=== PATIENT | female | born 1940 | race Asian ===

== ENCOUNTER 2022-02-11 14:26 | Outpatient (CLI) | payer MEDICARE, OTHER, SELFPAY | END 2022-02-11 14:27 | disposition home or self-care (01) | LOC: NFLDREF 14:27 | PROVIDERS: PCP Family Medicine; Visit Provider Family Medicine | DX: R35.0 Frequency of micturition (principal) | CPT/HCPCS: 87086; 87186 ==

== ENCOUNTER 2022-09-10 10:05 | Outpatient (CLI) | payer MEDICARE, OTHER, SELFPAY | END 2022-09-10 10:06 | disposition home or self-care (01) | PROVIDERS: PCP Family Medicine; Visit Provider Family Medicine | DX: Z00.00 Encounter for general adult medical examination without abnormal findings (principal); E78.5 Hyperlipidemia, unspecified; E03.9 Hypothyroidism, unspecified; I10 Essential (primary) hypertension; E87.1 Hypo-osmolality and hyponatremia | CPT/HCPCS: 80048; 80061; 84443 ==

== ENCOUNTER 2022-09-18 08:50 | Outpatient (CLI) | payer MEDICARE, OTHER, SELFPAY ==
--- NOTE | 2022-09-18 09:15 | CRLHL7_ITS ---
For Patients: As a result of the Century Cures Act, medical imaging exams and procedure reports are released immediately into your electronic medical record. You may view this report before your referring provider. If you have questions, please contact your health care provider. DIGITAL BILATERAL SCREENING MAMMOGRAM USING COMPUTER-AIDED DETECTION INDICATION: 82-year-old asymptomatic female. Benign biopsies RIGHT breast. Follow-up. Screening. TECHNIQUE: CC and MLO views were obtained. This digital study was evaluated with the assistance of computer-aided detection. COMPARISON: 09/14/2021, 09/06/2021, and 07/07/2018. FINDINGS: Breast Composition: There are areas of scattered fibroglandular density. Minimal benign calcification on the RIGHT. Two biopsy clips are identified on the RIGHT, one is associated with a small nodule which appears to be slightly larger than before. By pathology report the biopsies were benign. No suspicious microcalcifications or regions of architectural distortion. IMPRESSION: 1. Biopsy change RIGHT breast. 2. One of the biopsied nodules appears to be slightly larger. 3. Annual mammography is recommended. BI-RADS Category 2: Benign A lay language report of this examination will be provided to the patient. Dictated by: Bishop Diaz MD @09/19/2022 8:20:55 AM jj/Dictated by: Bishop Diaz MD @ 09/19/2022 8:20:00 AM (Electronically Signed)
== END 2022-09-18 08:51 | disposition home or self-care (01) ==
LOC: MAMMO 08:51
PROVIDERS: PCP Family Medicine; Visit Provider Family Medicine
DX: Z12.31 Encounter for screening mammogram for malignant neoplasm of breast (principal); N63.10 Unspecified lump in the right breast, unspecified quadrant
CPT/HCPCS: 77067

== ENCOUNTER 2023-04-18 09:13 | Inpatient (IN) | payer MEDICARE, OTHER, SELFPAY ==
[2023-04-18] VITALS (15 sets, daily range): BP systolic 81–139; BP diastolic 53–83; PULSE 67–109; RESP 14–16; TEMP 36.4–39.4; O2SAT 97–98; BMI 21.2; BMI 21.4
[2023-04-18 09:40] LABS: Appearance Urine Turbid (Clear); Bilirubin Urine Negative (Negative); Blood Urine 3+ (Negative); Color Urine Yellow (Yellow); Glucose Urine Negative (Negative); Ketones Urine Negative (Negative); Leukocyte Esterase Urine 3+ (Negative); Nitrite Urine Negative (Negative); Protein Urine 3+ (Negative); Specific Gravity Urine 1.015 (1.000-1.030); Urobilinogen Urine 0.2 (0.2-1.0)
[2023-04-18 09:52] LABS: Bacteria Urine Many; RBC Urine 25-50 (0-2); Squamous Epithelial Cell Urine Few (None-Few); WBC Urine >100 (0-5)
[2023-04-18 12:00] LABS: Basophils Percent Auto 0.4 % (0.0-3.0); Hemoglobin* 11.9 gm/dL (12.0-16.0); Immature Granulocytes Pct Auto 0.2 %; Mean Corpuscular HGB Conc 35 gm/dL (32-36); Mean Corpuscular Hemoglobin 30 pg (26-34); Mean Corpuscular Volume 84 fL (80-100); Monocytes Percent Auto 6.4 % (0.0-11.0); Platelet Count* 167 K/uL (140-440); Red Blood Count 4.04 m/uL (4.00-5.20); White Blood Count* 11.27 K/uL (4.50-11.00)
[2023-04-18 12:06] LABS: Slide Review Reflex No
[2023-04-18 12:08] LABS: Chloride* 92 mmol/L (96-114); Potassium* 4.2 mmol/L (3.6-5.1); Sodium* 127 mmol/L (135-149)
[2023-04-18 12:11] LABS: Anion Gap 17 mEq/L (7-15); Blood Urea Nitrogen* 12 mg/dL (7-30); Carbon Dioxide* 18 mmol/L (20-32); Creatinine* 1.6 mg/dL (0.5-1.5); Est. Creatinine Clearance* 21.81; Estimated Glomerular Filt Rate 32 ml/min; Glucose* 118 mg/dL (60-115)
[2023-04-18 12:12] LABS: Calcium* 9.6 mg/dL (8.4-10.6)
--- NOTE | 2023-04-18 13:08 | ED_ITS ---
HPI - General Adult General Date Seen: 04/18/23 Chief complaint: Urogenital Problems, Female Stated complaint: Possible bladder infection Time Seen by Provider: 04/18/23 11:01 Source: patient Mode of arrival: ambulatory Limitations: no limitations History of Present Illness HPI narrative: Patient is an 82-year-old female with history of chronic hepatitis-B infection presented to emergency department for dysuria. She states she has been having dysuria for the past 4 days. She has associated nausea and has vomited once in that time. She states she has not been eating much due to the nausea and just not feeling hungry. She has been drinking fluids though. Denies weakness, numbness, headache, vision changes, abdominal pain, lightheadedness, dizziness. No other concerns at this time. Related Data Home Medications Medication Instructions Recorded Confirmed aspirin 81 mg tablet,delayed 81 mg PO MOWEFR 03/07/22 04/18/23 release calcium carbonate 600 mg calcium 600 mg PO DAILY 03/07/22 04/18/23 (1,500 mg) tablet cholecalciferol (vitamin D3) 25 25 mcg PO DAILY 03/07/22 04/18/23 mcg (1,000 unit) capsule mecobalamin (vitamin B12) 1,000 1,000 mcg PO DAILY 03/07/22 04/18/23 mcg chewable tablet multivitamin 1 tab PO QAM 03/07/22 04/18/23 omega 8-ukv-nza-fish oil 300 1 cap PO DAILY 03/07/22 04/18/23 mg-1,000 mg capsule (Fish Oil) triamcinolone acetonide 0.1 % 1 applic topical BID PRN 03/07/22 04/18/23 topical cream atorvastatin 10 mg tablet 10 mg PO HS 04/18/23 04/18/23 dorzolamide 2 % eye drops 1 drp ophthalmic (eye) BID 04/18/23 04/18/23 ketoconazole 2 % shampoo 1 applic topical Q3D PRN 04/18/23 04/18/23 lisinopril 30 mg tablet 30 mg PO DAILY 04/18/23 04/18/23 omeprazole 20 mg capsule,delayed 20 mg PO DAILY 04/18/23 04/18/23 release sennosides 8.6 mg capsule (senna) 17.2 mg PO DAILY 04/18/23 04/18/23 timolol maleate 0.5 % eye drops 1 drp ophthalmic (eye) BID 04/18/23 04/18/23 Previous Rx's Medication Instructions Recorded levothyroxine 25 mcg tablet 25 mcg PO DAILY #90 tabs 03/10/23 ropinirole 0.5 mg tablet See Rx Instructions .Route 03/10/23 .COMPLEX #90 tabs spironolactone 25 mg tablet 25 mg PO QAM #90 tabs 03/10/23 Allergies Allergy/AdvReac Type Severity Reaction Status Date / Time ciprofloxacin Allergy Mild Rash Verified 03/10/23 12:55 Review of Systems Status of ROS: Reports: 10 or more systems reviewed and unremarkable except as noted in History and below [facility] Medical History (Updated 04/18/23 @ 14:49 by Macy Dumont PA-C) Hyponatremia ?E87.1 - Hypo-osmolality and hyponatremia (ICD-10) Surgical History S/P bilateral cataract extraction ?Z98.41 - Cataract extraction status, right eye (ICD-10) ?Z98.42 - Cataract extraction status, left eye (ICD-10) History of bilateral breast reduction surgery ?Z98.890 - Other specified postprocedural states (ICD-10) Family History Unknown Breast cancer Colon cancer Social History What is your current living situation?: I presently have a place to live Problems where you live: no known problems Problems where you live details: none identified In the past 12 months, utilities in danger of being shut off: no In past 12 months, lack of transportation kept you from medical appts, meetings, work, or getting things needed for daily living: no In the past 12 mos, have been you worried that your food would run out before you had money to buy more?: never true In the past 12 mos, the food you bought just didn't last and you didn't have money to buy more?: never true Smoking Status: Never smoker How often do you have a drink containing alcohol: never AUDIT-C Alcohol total score: 0 Non-prescribed substance use: denies use Caffeine: No How often does anyone, including family, friends and others, physically hurt you : never How often does anyone, including family, friends and others, insult or talk down to you: never How often does anyone, including family, friends and others, threaten you with harm: never How often does anyone, including family, friends and others, scream or curse at you: never Little interest or pleasure in doing things: nearly every day Feeling down, depressed, or hopeless: not at all service: No Exam Narrative: Exam Narrative: Const: Well-nourished, Well-developed, in no distress Eyes: PERRL, no conjunctival injection, and symmetrical lids HENT: Atraumatic external nose and ears. Moist mucous membranes. Neck: Symmetric, trachea midline, No thyromegaly. CVS: RRR, No murmurs or gallops. Peripheral pulses 2+ and equal in all extremities RESP: Unlabored respiratory effort. Clear to auscultation bilaterally. GI: Nontender/Nondistended, No rebound or guarding. MSK:Extremities w/o deformity, Normal Active ROM Skin: Warm, Dry. No rashes or lesions. Neuro: Normal Muscle tone, No focal neurological deficits. Psych: Awake, Alert, & Oriented x3. Appropriate mood and affect. Const: Vital Signs, click to edit/add: Vital Signs - 24 hr 04/18/23 09:22 04/18/23 13:00 04/18/23 13:30 Temperature 97.6 F Pulse Rate 82 89 Pulse Rate [Pulse Oximeter] 96 Respiratory Rate 16 14 16 Blood Pressure 125/80 114/75 Blood Pressure [Ri ght Upper Arm] 98/66 Pulse Oximetry 98 97 98 Oxygen Delivery Me thod Room Air Course Vital Signs Vital signs: Initial Vital Signs Temperature 97.6 F 04/18/23 09:22 Temperature Source Temporal Artery Scan 04/18/23 09:22 Pulse Rate 96 04/18/23 09:22 Respiratory Rate 16 04/18/23 09:22 Blood Pressure 98/66 04/18/23 09:22 Blood Pressure Mean 76 04/18/23 09:22 Blood Pressure Position Supine 04/18/23 09:22 Pulse Oximetry 98 04/18/23 09:22 Oxygen Delivery Method Room Air 04/18/23 09:22 Vital Signs Temperature 97.6 F 04/18/23 09:22 Pulse Rate 96 04/18/23 09:22 Respiratory Rate 16 04/18/23 09:22 Blood Pressure 98/66 04/18/23 09:22 Pulse Oximetry 98 04/18/23 09:22 Oxygen Delivery Method Room Air 04/18/23 09:22 Temperature 100.9 F H 04/18/23 14:49 Pulse Rate 102 H 04/18/23 14:49 Respiratory Rate 16 04/18/23 14:49 Blood Pressure 139/83 04/18/23 14:49 Pulse Oximetry 98 04/18/23 14:49 Oxygen Delivery Method Room Air 04/18/23 14:49 Medications Administered Medications: Discontinued Medications Generic Name Dose Route Start Last Admin Trade Name Johnnie PRN Reason Stop Dose Admin Lactated Ringer's 1,000 mls @ 1,000 mls/hr 04/18/23 11:06 04/18/23 11:44 Lactated Ringers 1000 Ml IV 04/18/23 12:05 Not Given .Q1H ONE Sodium Chloride 1,000 mls @ 1,000 mls/hr 04/18/23 12:45 04/18/23 13:11 0.9 % Sodium Chloride 1000 Ml IV 04/18/23 13:44 1,000 mls/hr .Q1H CESILIA Administration Ceftriaxone Sodium 1 gm/ 100 mls @ 200 mls/hr 04/18/23 13:03 04/18/23 14:11 Sodium Chloride IVPB 04/18/23 13:04 Infused ONCE ONE Infusion Ondansetron HCl 4 mg 04/18/23 11:06 04/18/23 13:27 Ondansetron 2 Mg/Ml Inj IVP 04/18/23 11:07 Not Given ONCE ONE Medical Decision Making [facility] Narrative Medical decision making narrative: Patient is an 82-year-old female presenting for dysuria. No other complaints. Due to her age in decreased oral intake with nausea over the past few days I find it necessary to order CBC and BMP to better evaluate her. We also give her L of fluids. Urinalysis was already done and shows clearly shows urinary tract infection. Lab work return with new a normal white blood cell count. Her sodium is 127 and of note she was 129 back in August with no other issues. The concerning findings the creatinine is up to 1.6. He had back in August was 0.9 and looking at her history she has been between 0.7 and 0.9 since 2010. His likely caused by her dehydration. Spoke to the patient about admission versus discharge. I did explain to her I find she would probably be better off [facility] to receive fluids. I spoke to the admitting provider in the accepted her for admission Lab Data Labs: Lab Results 04/18/23 04/18/23 Range/Units 09:30 11:50 WBC 11.27 H (4.50-11.00) K/uL RBC 4.04 (4.00-5.20) m/uL Hgb 11.9 L (12.0-16.0) gm/dL Hct 34.0 (33.0-51.0) % MCV 84 (80-100) fL MCH 30 (26-34) pg MCHC 35 (32-36) gm/dL RDW Coeff of Carlos 13.0 (11.5-15.5) % Plt Count 167 (140-440) K/uL Neut % (Auto) 82.0 H (42.0-72.0) % Lymph % (Auto) 11.0 L (20-44) % [place] % (Auto) 6.4 (0.0-11.0) % Eos % (Auto) 0.0 (0.0-7.0) % Baso % (Auto) 0.4 (0.0-3.0) % Neut # (Auto) 9.20 H (1.7-7.0) K/uL Lymph # (Auto) 1.20 (0.90-2.90) K/uL [place] # (Auto) 0.70 (0.00-0.90) K/UL Eos # (Auto) 0.00 (0.00-0.50) K/uL Baso # (Auto) 0.00 (0.00-0.30) K/uL Abs Immat Gran (auto) 0.00 (0.00-0.30) K/uL Imm/Tot Granulo (auto) 0.2 % Sodium 127 L (135-149) mmol/L Potassium 4.2 (3.6-5.1) mmol/L Chloride 92 L (96-114) mmol/L Carbon Dioxide 18 L (20-32) mmol/L Anion Gap 17 H (7-15) mEq/L BUN 12 (7-30) mg/dL Creatinine 1.6 H (0.5-1.5) mg/dL Estimated Creat Clear 21.81 Estimated GFR 32 ml/min Glucose 118 H (60-115) mg/dL Calcium 9.6 (8.4-10.6) mg/dL Urine Color Yellow (Yellow) Urine Appearance Turbid A (Clear) Urine pH 6.0 (5.0-8.5) Ur Specific [place] 1.015 (1.000-1.030) Urine Protein 3+ A (Negative) Urine Glucose (UA) Negative (Negative) Urine Ketones Negative (Negative) Urine Blood 3+ A (Negative) Urine Nitrite Negative (Negative) Urine Bilirubin Negative (Negative) Urine Urobilinogen 0.2 (0.2-1.0) Ur Leukocyte Esterase 3+ A (Negative) Urine RBC 25-50 A (0-2) Urine WBC >100 A (0-5) Ur Squamous Epith Cells Few (None-Few) Urine Bacteria Many A (None) Discharge Plan Discharge Clinical Impression: [place] (acute kidney injury), Acute UTI Patient Disposition: Admitted As Observation Discharge Location: [facility]
[2023-04-18] MEDS: 0.9 % SODIUM CHLORIDE 1000 ml 1,000 ML IV ×2 (13:11→16:24)
[2023-04-18] MEDS: cefTRIAXone 1 GM in 0.9 % SODIUM CHLORIDE Mini-bag 100 ML IVPB (13:25)
--- NOTE | 2023-04-18 13:46 | ED.NURSE ---
Report given to JOHANNA Valdez. Pt will go to 249.
--- NOTE | 2023-04-18 14:41 | PM.IMHP1 ---
Hospitalist- H&P: HPI History of Present Illness Date Seen: 04/18/23 Chief complaint: Possible bladder infection Narrative: Arnulfo Ruvalcaba is a 82 year old female past medical history significant for hypertension, hyperlipidemia, restless legs syndrome, hypothyroidism is admitted to the medical floor from the ED for further management suspected acute urinary tract infection with [place]. Patient reports pain with urination the past few days. Denies frequency urgency. Denies flank or abdominal pain. No noted fevers or chills prior to arrival to the floor. Denies headache or dizziness currently. Denies recent nausea vomiting. Did have a loose stool upon arrival to the floor, but denies any prior. Per ED report, daughter told staff that patient has had a previous urinary tract infection requiring hospitalization. In the ED, mild leukocytosis noted. Creatinine noted to be 1.6, previously 0.9. Patient received 1 g ceftriaxone IV and 1 L normal saline bolus. Admitted for observation and further management. Labs reviewed. No imaging obtained. Review of Systems Narrative: REVIEW OF SYSTEMS: Complete review of systems performed and negative unless otherwise stated in HPI or below. [facility] Medical History (Updated 04/18/23 @ 15:16 by Macy Dumont PA-C) Hyponatremia ?E87.1 - Hypo-osmolality and hyponatremia (ICD-10) Surgical History S/P bilateral cataract extraction ?Z98.41 - Cataract extraction status, right eye (ICD-10) ?Z98.42 - Cataract extraction status, left eye (ICD-10) History of bilateral breast reduction surgery ?Z98.890 - Other specified postprocedural states (ICD-10) Family History Unknown Breast cancer Colon cancer Social History What is your current living situation?: declined to answer Problems where you live: declined to answer In the past 12 months, utilities in danger of being shut off: declined to answer In past 12 months, lack of transportation kept you from medical appts, meetings, work, or getting things needed for daily living: declined to answer In the past 12 mos, have been you worried that your food would run out before you had money to buy more?: declined to answer In the past 12 mos, the food you bought just didn't last and you didn't have money to buy more?: declined to answer Smoking Status: Never smoker Non-prescribed substance use: denies use How often does anyone, including family, friends and others, physically hurt you: decline to answer How often does anyone, including family, friends and others, insult or talk down to you: decline to answer How often does anyone, including family, friends and others, threaten you with harm: decline to answer How often does anyone, including family, friends and others, scream or curse at you: decline to answer Little interest or pleasure in doing things: nearly every day Feeling down, depressed, or hopeless: not at all Meds Home Medications and Allergies Home Medications Medication Instructions Recorded Confirmed Type aspirin 81 mg tablet,delayed 81 mg PO MOWEFR 03/07/22 04/18/23 History release calcium carbonate 600 mg calcium 600 mg PO DAILY 03/07/22 04/18/23 History (1,500 mg) tablet cholecalciferol (vitamin D3) 25 25 mcg PO DAILY 03/07/22 04/18/23 History mcg (1,000 unit) capsule mecobalamin (vitamin B12) 1,000 1,000 mcg PO DAILY 03/07/22 04/18/23 History mcg chewable tablet multivitamin 1 tab PO QAM 03/07/22 04/18/23 History omega 3-dsr-qvx-fish oil 300 1 cap PO DAILY 03/07/22 04/18/23 History mg-1,000 mg capsule (Fish Oil) triamcinolone acetonide 0.1 % 1 applic topical BID PRN 03/07/22 04/18/23 History topical cream atorvastatin 10 mg tablet 10 mg PO HS 04/18/23 04/18/23 History dorzolamide 2 % eye drops 1 drp ophthalmic (eye) BID 04/18/23 04/18/23 History ketoconazole 2 % shampoo 1 applic topical Q3D PRN 04/18/23 04/18/23 History lisinopril 30 mg tablet 30 mg PO DAILY 04/18/23 04/18/23 History omeprazole 20 mg capsule,delayed 20 mg PO DAILY 04/18/23 04/18/23 History release sennosides 8.6 mg capsule (senna) 17.2 mg PO DAILY 04/18/23 04/18/23 History timolol maleate 0.5 % eye drops 1 drp ophthalmic (eye) BID 04/18/23 04/18/23 History Allergies Allergy/AdvReac Type Severity Reaction Status Date / Time ciprofloxacin Allergy Mild Rash Verified 03/10/23 12:55 Exam Narrative: Exam Narrative: PHYSICAL EXAM General: Pleasant, conversant, NAD HEENT: Normocephalic, atraumatic, sclera white, EOMI, oral mucosa moist Cardiovascular: RRR, S1S2. No pitting edema Pulmonary: CTA bilaterally without rhonchi, rales, expiratory wheezes. No dyspnea Abdominal: Soft, nondistended, NTTP Neurological: Alert, answering questions appropriately, cranial nerves intact, no focal findings Extremities: No gross joint deformity or swelling. AROMI. Neurovascularly intact Skin: Warm, dry. Const: Vital Signs, click to edit/add: Vital Signs - 24 hr 04/18/23 09:22 04/18/23 13:00 04/18/23 13:30 Temperature 97.6 F Pulse Rate 82 89 Pulse Rate [Pulse Oximeter] 96 Respiratory Rate 16 14 16 Blood Pressure 125/80 114/75 Blood Pressure [Ri ght Upper Arm] 98/66 Pulse Oximetry 98 97 98 Oxygen Delivery Me thod Room Air Hospitalist - H&P: Result Labs Labs: Short CBC 04/18/23 Range/Units 11:50 WBC 11.27 H (4.50-11.00) K/uL Hgb 11.9 L (12.0-16.0) gm/dL Hct 34.0 (33.0-51.0) % Plt Count 167 (140-440) K/uL BMP 04/18/23 11:50 Sodium 127 L Potassium 4.2 Chloride 92 L Carbon Dioxide 18 L BUN 12 Creatinine 1.6 H Glucose 118 H Calcium 9.6 Urine 04/18/23 Range/Units 09:30 Urine Color Yellow (Yellow) Urine Appearance Turbid A (Clear) Urine pH 6.0 (5.0-8.5) Ur Specific [place] 1.015 (1.000-1.030) Urine Protein 3+ A (Negative) Urine Glucose (UA) Negative (Negative) Assessment and Plan Assessment and plan (1) Acute UTI: Problem comment: -UA suspicious, mild leukocytosis, fever 100.9 on arrival to medical floor otherwise vitally stable -continue ceftriaxone as initiated in ED. (Previous UC 01/2022 grew E coli, pansensitive) -continue gentle IV hydration following 1 L NS in ED -UC pending, BC x2, lactate, CRP ordered Status: Acute (2) [place] (acute kidney injury): Problem comment: -creatinine 1.6, previously 0.9 in 09/15 -continue gentle IV hydration -avoid nephrotoxic medications, renally dose antibiotics as appropriate, lisinopril and spironolactone held -follow morning BMP Status: Acute (3) Hyponatremia: Problem comment: -acute on chronic, sodium 127, previously 129, asymptomatic. Receiving NS for UTI. -continue to monitor with morning BMP Status: Acute (4) Benign essential hypertension: Problem comment: -lisinopril, spironolactone held in setting of [place] Status: Chronic (5) Hyperlipidemia: Problem comment: -statin held in setting of [place]. Continue aspirin Status: Chronic (6) Hypothyroidism: Problem comment: -continue levothyroxine Status: Chronic (7) Restless legs syndrome: Problem comment: -continue Requip Status: Chronic (8) Chronic hepatitis B virus infection: Problem comment: -LFTs ordered for a.m. Status: Chronic (9) Chronic gastritis: Problem comment: -continue PPI Status: Chronic Plan CODE: Full as discussed with patient VTE PPX: Enoxaparin Disposition: Observation
[2023-04-18] MEDS: ACETAMINOPHEN 325 MG TABLET PO (14:56)
[2023-04-18] MEDS: 0.9 % SODIUM CHLORIDE 1000 ml 1,000 ML 125 ML IV ×2 (15:24→22:44)
[2023-04-18 16:32] LABS: C Reactive Protein* 20.2 mg/dL (0.5-1.0)
[2023-04-18] MEDS: PIPERACILLIN/TAZOBACTAM 3.375 GM in 0.9 % SODIUM CHLORIDE Mini-bag 100 ML IVPB ×2 (16:44→22:44)
--- NOTE | 2023-04-18 17:59 | PC.NURSE ---
Patient arrived to unit at 1400. Ambulatory and A&O. SBA for transfers & ambulation. Ind bed mobility. BP stable on arrival but trended downward as well as temp trended upward. T-max 102.9. PRN Tylenol given x1 at 1455. TELE shows ST w/ PVC's. Difficult IV stick- PIV in right upper arm secured with washcloth and coban. NS infusing @ 125 mL/hr. Received x1 1L NS bolus and IV zosyn. Received IV rocephin in ED. Blood cultures obtained. Pt had x1 incontinent loose stool. Poor appetite. Skin is hot to the touch and patient pale in color in relation to ethnicity. Denies and pain, dizziness or N/V.
[2023-04-18] MEDS: 0.9 % SODIUM CHLORIDE 500 ML 500 ML IV (19:50)
[2023-04-18] MEDS: ROPINIROLE HCL 1 MG TABLET 0.5 MG PO (21:15)
[2023-04-18] MEDS: ENOXAPARIN 40 MG/0.4 ML INJ SUBCUT (21:16)
--- NOTE | 2023-04-18 22:37 | PM.IMPN1 ---
Progress Note: A&P Assessment and plan (1) Acute UTI: Problem details: -UA suspicious, mild leukocytosis, fever 100.9 on arrival to medical floor otherwise vitally stable -continue ceftriaxone as initiated in ED. (Previous UC 01/2022 grew E coli, pansensitive) -continue gentle IV hydration following 1 L NS in ED -UC pending, BC x2, lactate, CRP ordered Status: Acute (2) [place] (acute kidney injury): Problem details: -creatinine 1.6, previously 0.9 in 09/15 -continue gentle IV hydration -avoid nephrotoxic medications, renally dose antibiotics as appropriate, lisinopril and spironolactone held -follow morning BMP Status: Acute (3) Hyponatremia: Problem details: -acute on chronic, sodium 127, previously 129, asymptomatic. Receiving NS for UTI. -continue to monitor with morning BMP Status: Acute (4) Benign essential hypertension: Problem details: -lisinopril, spironolactone held in setting of [place]. Due to hyponatremia consider stopping spironolactone Status: Chronic (5) Hypothyroidism: Problem details: -continue levothyroxine Status: Chronic (6) Restless legs syndrome: Problem details: -continue Requip Status: Chronic (7) Chronic hepatitis B virus infection: Problem details: -LFTs ordered for a.m. Status: Chronic (8) Chronic gastritis: Problem details: -continue PPI Status: Chronic (9) Metabolic acidosis: Problem details: Probably due to acute illness. Continue to follow. Fluid resuscitation as needed. Status: Acute Plan Continue in hospital for treatment of sepsis and UTI with piperacillin tazobactam. Continue to monitor and manage other medical problems including problems with fluid and electrolytes. Encourage activity. Time Spent With Patient Total time spent: Total time spent today is 55 minutes, 40 minutes in coordination of care discussing with patient and other providers ongoing management of urinary tract infections and sepsis. Subjective Date Seen: 04/19/23 Interval history: 82-year-old female admitted to the hospital with onset of symptoms of urinary tract infection starting about 5 days ago. About 5 days ago she felt like she was having a urinary tract infection. This is a recurrent problem for her. She has previously been hospitalized for this as well. She tried to manage at home but was unable to and so came to the emergency room when she became quite ill with this. Yesterday she was admitted to the hospital. During the day yesterday she was hypotensive, tachycardic, febrile. She had abnormal urine sediment, elevated white count, elevated CRP. She also had acute kidney injury with a creatinine of 1.6 compared to her most recent baseline creatinine of 0.9 last August. She had a metabolic acidosis as well. She is treated with fluid resuscitation and antibiotic was switched to piperacillin tazobactam. Today she reports feeling quite a bit better. She reports no shortness of breath are chest pain. She still having low-grade fevers. She has had a poor appetite but it is a little better today. No nausea or vomiting. No flank or back pain. Urination feels better as well. Exam Narrative: Exam Narrative: She is alert and appears in no distress. Speech is normal. She is oriented to her circumstances. Respirations are clear to auscultation. Cardiovascular: S1, S2, regular rate and rhythm. No murmur gallop or rub. Abdomen: Bowel sounds active. Abdomen is soft without tenderness or mass. No flank tenderness or CVA tenderness. Extremities without edema. Const: Vital Signs, click to edit/add: Vital Signs - 24 hr 04/18/23 09:22 04/18/23 13:00 04/18/23 13:30 Temperature 97.6 F Pulse Rate 82 89 Pulse Rate [Pulse Oximeter] 96 Respiratory Rate 16 14 16 Blood Pressure 125/80 114/75 Blood Pressure [Le ft Arm] Blood Pressure [Ri ght Upper Arm] 98/66 Pulse Oximetry 98 97 98 Oxygen Delivery Me thod Room Air 04/18/23 14:02 04/18/23 14:02 04/18/23 14:33 Temperature 100.9 F H Pulse Rate Pulse Rate [Pulse Oximeter] 102 H Respiratory Rate 16 16 Blood Pressure Blood Pressure [Le ft Arm] 139/83 Blood Pressure [Ri ght Upper Arm] Pulse Oximetry 97 98 97 Oxygen Delivery Me thod Room Air Room Air Room Air 04/18/23 14:49 04/18/23 14:56 04/18/23 15:00 Temperature 100.9 F H 100.9 F H Pulse Rate Pulse Rate [Pulse Oximeter] 102 H 109 H Respiratory Rate 16 16 Blood Pressure Blood Pressure [Le ft Arm] 139/83 Blood Pressure [Ri ght Upper Arm] Pulse Oximetry 98 Oxygen Delivery Me thod Room Air 04/18/23 15:45 04/18/23 16:24 04/18/23 16:27 Temperature 102.9 F H 102.9 F H Pulse Rate 104 H Pulse Rate [Pulse Oximeter] 109 H Respiratory Rate 16 Blood Pressure Blood Pressure [Le ft Arm] 91/59 L Blood Pressure [Ri ght Upper Arm] Pulse Oximetry 98 Oxygen Delivery Me thod Room Air 04/18/23 17:55 04/18/23 19:00 04/18/23 21:00 Temperature 99.9 F H 98.3 F Pulse Rate Pulse Rate [Pulse Oximeter] 67 Respiratory Rate 16 Blood Pressure Blood Pressure [Le ft Arm] 90/53 L 81/54 L 92/53 L Blood Pressure [Ri ght Upper Arm] Pulse Oximetry 98 Oxygen Delivery Me thod Room Air Documenting provider has reviewed patient's vital signs: yes Labs Labs: Laboratory Results - last 24 hr 04/18/23 04/18/23 04/18/23 09:30 11:50 15:46 WBC 11.27 H RBC 4.04 Hgb 11.9 L Hct 34.0 MCV 84 MCH 30 MCHC 35 RDW Coeff of Carlos 13.0 Plt Count 167 Neut % (Auto) 82.0 H Lymph % (Auto) 11.0 L [place] % (Auto) 6.4 Eos % (Auto) 0.0 Baso % (Auto) 0.4 Neut # (Auto) 9.20 H Lymph # (Auto) 1.20 [place] # (Auto) 0.70 Eos # (Auto) 0.00 Baso # (Auto) 0.00 Abs Immat Gran (auto) 0.00 Imm/Tot Granulo (auto) 0.2 Sodium 127 L Potassium 4.2 Chloride 92 L Carbon Dioxide 18 L Anion Gap 17 H BUN 12 Creatinine 1.6 H Estimated Creat Clear 21.81 Estimated GFR 32 Glucose 118 H Lactate 1.0 Calcium 9.6 C-Reactive Protein 20.2 H Urine Color Yellow Urine Appearance Turbid A Urine pH 6.0 Ur Specific [place] 1.015 Urine Protein 3+ A Urine Glucose (UA) Negative Urine Ketones Negative Urine Blood 3+ A Urine Nitrite Negative Urine Bilirubin Negative Urine Urobilinogen 0.2 Ur Leukocyte Esterase 3+ A Urine RBC 25-50 A Urine WBC >100 A Ur Squamous Epith Cells Few Urine Bacteria Many A
[2023-04-19] VITALS (7 sets, daily range): BP systolic 92–144; BP diastolic 57–82; PULSE 73–99; RESP 16–20; TEMP 36.7–38.2; O2SAT 97–99
[2023-04-19] MEDS: ACETAMINOPHEN 325 MG TABLET PO ×2 (03:11→11:47)
[2023-04-19] MEDS: PIPERACILLIN/TAZOBACTAM 3.375 GM in 0.9 % SODIUM CHLORIDE Mini-bag 100 ML IVPB ×4 (04:45→22:31)
[2023-04-19] MEDS: LEVOTHYROXINE 25 MCG TABLET PO (06:19)
[2023-04-19] MEDS: OMEPRAZOLE 20 MG CAPSULE DR PO (06:19)
[2023-04-19 06:42] LABS: Basophils Absolute Auto 0.03 K/uL (0.00-0.30); Basophils Percent Auto 0.4 % (0.0-3.0); Eosinophils Absolute Auto 0.01 K/uL (0.00-0.50); Eosinophils Percent Auto 0.1 % (0.0-7.0); Hematocrit 23.4 % (33.0-51.0); Hemoglobin* 8.2 gm/dL (12.0-16.0); Immature Granulocytes Abs Auto 0.01 K/uL (0.00-0.30); Immature Granulocytes Pct Auto 0.1 %; Mean Corpuscular HGB Conc 35 gm/dL (32-36); Mean Corpuscular Hemoglobin 30 pg (26-34); Mean Corpuscular Volume 85 fL (80-100); Monocytes Percent Auto 7.3 % (0.0-11.0); Neutrophils Percent Auto 82.1 % (42.0-72.0); Platelet Count* 126 K/uL (140-440); RDW Coefficient of Variation % 13.6 % (11.5-15.5); Red Blood Count 2.77 m/uL (4.00-5.20); Slide Review Reflex No; White Blood Count* 7.72 K/uL (4.50-11.00)
[2023-04-19 06:58] LABS: Chloride* 103 mmol/L (96-114)
[2023-04-19 06:59] LABS: Sodium* 129 mmol/L (135-149)
[2023-04-19 07:00] LABS: Potassium* 3.6 mmol/L (3.6-5.1)
--- NOTE | 2023-04-19 07:00 | PC.NURSE ---
Shift note: Increased temp of 100.7F, Tylenol administered for symptoms such as chills and shivers, perspirations, pt rested comfortably afterwords. Urine output adequate, urine is cloudy and straw in color, BPs in 90ies, no c/o lightheadedness or dizziness.
[2023-04-19 07:02] LABS: Alanine Aminotransferase* 16 U/L (4-35); Alkaline Phosphatase* 32 U/L (40-150); Anion Gap 9 mEq/L (7-15); Aspartate Amino Transferase* 30 U/L (12-35); Bilirubin Total* 0.5 mg/dL (0.1-1.5); Blood Urea Nitrogen* 10 mg/dL (7-30); Carbon Dioxide* 17 mmol/L (20-32); Creatinine* 1.2 mg/dL (0.5-1.5); Est. Creatinine Clearance* 29.08; Estimated Glomerular Filt Rate 45 ml/min; Glucose* 114 mg/dL (60-115); Total Protein* 5.7 g/dL (6.0-8.3)
[2023-04-19 07:03] LABS: Calcium* 6.8 mg/dL (8.4-10.6)
[2023-04-19] MEDS: DORZOLAMIDE HCL 2 % OPHTH DROP 1 DROP EYE-BOTH ×2 (08:16→20:45)
[2023-04-19] MEDS: timoloL maleate 0.5 % 1 DROP EYE-BOTH ×2 (08:17→20:47)
[2023-04-19] MEDS: LACTATED RINGERS 1000 ML 1,000 ML 125 ML IV ×2 (08:19→16:19)
[2023-04-19 08:55] LABS: Thyroid Stimulating Hormone* 0.919 uIU/mL (0.270-4.20)
--- NOTE | 2023-04-19 18:31 | PC.NURSE ---
Patient A&O and VSS today. Patient remained afebrile but BP remains soft; asymptomatic. Increased PO intake today and tolerating fluids. New IV placed in left FA d/t right upper arm site sensitive to position changes. Patient denies any N/V but has c/o ABRAHAM today in which she received PRN Tylenol x1 dose today. Continuous IVF changed from NS to LR. PRN lozenges ordered for c/o dry cough & scratchy throat. UC showed gram negative rods. TELE reads SR. Hemoccult ordered but pt has not had a BM yet today. Denied shower this evening but would like to try tomorrow.
[2023-04-19] MEDS: ENOXAPARIN 40 MG/0.4 ML INJ SUBCUT (20:47)
[2023-04-19] MEDS: ROPINIROLE HCL 1 MG TABLET 0.5 MG PO (20:47)
[2023-04-19] MEDS: ATORVASTATIN 10 MG TABLET PO (21:17)
--- NOTE | 2023-04-19 22:39 | PC.NURSE ---
Shift [id number]- Patient denies pain. She is up with SBA and steady. Blood pressure is increased this evening. She naps on and off this evening.
[2023-04-20] VITALS (7 sets, daily range): BP systolic 120–157; BP diastolic 81–95; PULSE 67–93; RESP 16–20; TEMP 36.7–38; O2SAT 93–97
[2023-04-20] MEDS: ACETAMINOPHEN 325 MG TABLET PO (00:02)
[2023-04-20] MEDS: LACTATED RINGERS 1000 ML 1,000 ML 125 ML IV (01:23)
[2023-04-20] MEDS: PIPERACILLIN/TAZOBACTAM 3.375 GM in 0.9 % SODIUM CHLORIDE Mini-bag 100 ML IVPB (04:40)
--- NOTE | 2023-04-20 06:12 | PC.NURSE ---
End of Shift: Pt AO, pleasant and cooperative throughout shift. IV site in left arm remained patent, dressing CDI. Denies pain, reported headache during night, requested tylenol. Headache resolved. One BM throughout shift, continent with both bowel and bladder. Ambulates independently, requires help maneuvering IV pole. VSS.
[2023-04-20] MEDS: LEVOTHYROXINE 25 MCG TABLET PO (06:18)
[2023-04-20] MEDS: OMEPRAZOLE 20 MG CAPSULE DR PO ×2 (06:19→20:51)
[2023-04-20 07:02] LABS: White Blood Count* 5.91 K/uL (4.50-11.00)
[2023-04-20 07:03] LABS: Basophils Absolute Auto 0.02 K/uL (0.00-0.30); Basophils Percent Auto 0.3 % (0.0-3.0); Eosinophils Absolute Auto 0.09 K/uL (0.00-0.50); Eosinophils Percent Auto 1.5 % (0.0-7.0); Hematocrit 23.1 % (33.0-51.0); Hemoglobin* 8.1 gm/dL (12.0-16.0); Immature Granulocytes Abs Auto 0.02 K/uL (0.00-0.30); Immature Granulocytes Pct Auto 0.3 %; Lymphocytes Percent Auto 16.2 % (20-44); Mean Corpuscular HGB Conc 35 gm/dL (32-36); Mean Corpuscular Hemoglobin 30 pg (26-34); Mean Corpuscular Volume 84 fL (80-100); Monocytes Percent Auto 9.3 % (0.0-11.0); Neutrophils Percent Auto 72.4 % (42.0-72.0); Platelet Count* 124 K/uL (140-440); RDW Coefficient of Variation % 13.7 % (11.5-15.5); Red Blood Count 2.75 m/uL (4.00-5.20)
[2023-04-20 07:16] LABS: Slide Review Reflex No
[2023-04-20 07:27] LABS: Chloride* 103 mmol/L (96-114); Potassium* 3.3 mmol/L (3.6-5.1); Sodium* 129 mmol/L (135-149)
[2023-04-20 07:30] LABS: Anion Gap 8 mEq/L (7-15); Blood Urea Nitrogen* 6 mg/dL (7-30); Carbon Dioxide* 18 mmol/L (20-32); Estimated Glomerular Filt Rate 57 ml/min; Glucose* 101 mg/dL (60-115)
[2023-04-20 07:31] LABS: Calcium* 7.3 mg/dL (8.4-10.6)
[2023-04-20] MEDS: timoloL maleate 0.5 % 1 DROP EYE-BOTH ×2 (07:45→20:51)
[2023-04-20 07:46] LABS: C Reactive Protein* 16.2 mg/dL (0.5-1.0)
[2023-04-20] MEDS: DORZOLAMIDE HCL 2 % OPHTH DROP 1 DROP EYE-BOTH ×2 (07:46→20:51)
[2023-04-20 09:14] LABS: Iron* 22 ug/dL (37-170)
[2023-04-20] MEDS: cefTRIAXone 1 GM in 0.9 % SODIUM CHLORIDE Mini-bag 100 ML IVPB (09:16)
[2023-04-20] MEDS: POTASSIUM BICARB 25 MEQ EFFERVESCENT TAB PO ×2 (09:21→14:04)
[2023-04-20] MEDS: SPIRONOLACTONE 25 MG TABLET PO (09:21)
[2023-04-20 09:24] LABS: Percent Iron Saturation 9 % (20-50); Total Iron Binding Capacity 252 ug/dL (265-497)
[2023-04-20] MEDS: BENZOCAINE/MENTHOL 1 EACH LOZENGE MUCOUS MEM ×2 (10:01→14:13)
[2023-04-20] MEDS: FUROSEMIDE 10 MG/ML inj 20 MG IVP (14:05)
[2023-04-20 14:42] LABS: Fecal Occult Blood* Negative (Negative)
--- NOTE | 2023-04-20 15:57 | PM.IMPN1 ---
Progress Note: A&P Assessment and plan (1) Acute UTI: Problem details: -UA suspicious, mild leukocytosis, fever 100.9 on arrival to medical floor otherwise vitally stable -continue ceftriaxone as initiated in ED. (Previous UC 01/2022 grew E coli, pansensitive) -continue gentle IV hydration following 1 L NS in ED -UC pending, BC x2, lactate, CRP ordered Status: Acute (2) Sepsis: Problem details: On admission patient had fever tachycardia hypotension acute kidney injury. Source of sepsis appears to be urinary tract infection with E coli. Treated with ceftriaxone, piperacillin tazobactam, back to ceftriaxone. E coli sensitive to all of these. Signs of sepsis resolved Status: Acute (3) [place] (acute kidney injury): Problem details: -creatinine 1.6, previously 0.9 in 09/15 -continue gentle IV hydration -avoid nephrotoxic medications, renally dose antibiotics as appropriate, lisinopril and spironolactone held. Restart as blood pressure and renal function allow -follow morning BMP Status: Acute (4) Hyponatremia: Problem details: -acute on chronic, sodium 127, previously 129, asymptomatic. Receiving NS for UTI. -continue to monitor with morning BMP Status: Acute (5) Benign essential hypertension: Problem details: Resume medications as tolerated Status: Chronic (6) Hypothyroidism: Problem details: -continue levothyroxine Status: Chronic (7) Restless legs syndrome: Problem details: -continue Requip Status: Chronic (8) Chronic hepatitis B virus infection: Problem details: -LFTs ordered for a.m. Status: Chronic (9) Chronic gastritis: Problem details: -continue PPI Status: Chronic (10) Metabolic acidosis: Problem details: Probably due to acute illness. Continue to follow. Fluid resuscitation as needed. Status: Acute (11) Poor appetite: Problem details: Appears to be acute on chronic. Some of this likely due to sepsis but some of this may also be due to acute or chronic GI problem. With history of black stools and iron deficiency anemia will evaluate with EGD. Status: Acute Plan Continue in hospital for treatment of sepsis, UTI. Also assess anorexia and iron deficiency anemia. Time Spent With Patient Total time spent: Total time spent today is 60 minutes, 45 minutes in coordination of care and discussing with patient and daughter and other providers ongoing evaluation management of sepsis, UTI, anemia and poor appetite Subjective Date Seen: 04/20/23 Interval history: 82-year-old female admitted to the hospital with onset of symptoms of urinary tract infection starting about 5 days ago. About 5 days ago she felt like she was having a urinary tract infection. This is a recurrent problem for her. She has previously been hospitalized for this as well. She tried to manage at home but was unable to and so came to the emergency room when she became quite ill with this. Yesterday she was admitted to the hospital. During the day yesterday she was hypotensive, tachycardic, febrile. She had abnormal urine sediment, elevated white count, elevated CRP. She also had acute kidney injury with a creatinine of 1.6 compared to her most recent baseline creatinine of 0.9 last August. She had a metabolic acidosis as well. She is treated with fluid resuscitation and antibiotic was switched to piperacillin tazobactam. Today she reports feeling quite a bit better. She reports no shortness of breath are chest pain. She still having low-grade fevers. She has had a poor appetite . She is not eating much. Minimal nausea. No vomiting. No flank or back pain. Urination feels better as well. She has anemia following the fluid resuscitation for her sepsis. Hemoglobin remains low. Iron studies today show the she has got iron deficiency anemia. She has a history of gastritis noted in her chart. She does tell me that she has had black stools recently. Her daughter also tells me that she has had a poor appetite as a longstanding problem. Stool is fecal occult negative. Exam Narrative: Exam Narrative: She is alert and appears in no distress. Respirations are clear to auscultation. Cardiovascular: S1, S2, regular rate and rhythm. Abdomen is soft she has minimal epigastric tenderness. No mass. No peritonitis. Extremities no edema. Const: Vital Signs, click to edit/add: Vital Signs - 24 hr 04/19/23 19:02 04/19/23 23:00 04/19/23 23:00 Temperature 98.3 F 98.1 F Pulse Rate Pulse Rate [Pulse Oximeter] 81 81 81 Respiratory Rate 16 16 16 Blood Pressure [Le ft Arm] 135/70 144/82 H Blood Pressure [Ri ght Arm] Pulse Oximetry 99 99 Oxygen Delivery Me thod Room Air Room Air 04/19/23 23:00 04/20/23 03:00 04/20/23 07:00 Temperature 98.1 F Pulse Rate 76 67 Pulse Rate [Pulse Oximeter] 71 Respiratory Rate 16 Blood Pressure [Le ft Arm] 130/81 Blood Pressure [Ri ght Arm] Pulse Oximetry 97 Oxygen Delivery Me thod Room Air 04/20/23 07:00 04/20/23 07:00 04/20/23 11:00 Temperature 98.7 F 98.6 F Pulse Rate Pulse Rate [Pulse Oximeter] 71 71 71 Respiratory Rate 16 16 16 Blood Pressure [Le ft Arm] 148/89 H Blood Pressure [Ri ght Arm] 155/88 H Pulse Oximetry 96 96 Oxygen Delivery Me thod Room Air Room Air 04/20/23 14:44 04/20/23 14:44 Temperature 98.6 F Pulse Rate Pulse Rate [Pulse Oximeter] 88 88 Respiratory Rate 20 20 Blood Pressure [Le ft Arm] 148/90 H Blood Pressure [Ri ght Arm] Pulse Oximetry 94 Oxygen Delivery Me thod Room Air Documenting provider has reviewed patient's vital signs: yes Labs Labs: Laboratory Results - last 24 hr 04/20/23 04/20/23 04/20/23 05:50 09:02 14:30 WBC 5.91 RBC 2.75 L Hgb 8.1 L Hct 23.1 L MCV 84 MCH 30 MCHC 35 RDW Coeff of Carlos 13.7 Plt Count 124 L Neut % (Auto) 72.4 H Lymph % (Auto) 16.2 L [place] % (Auto) 9.3 Eos % (Auto) 1.5 Baso % (Auto) 0.3 Neut # (Auto) 4.30 Lymph # (Auto) 1.00 [place] # (Auto) 0.50 Eos # (Auto) 0.09 Baso # (Auto) 0.02 Abs Immat Gran (auto) 0.02 Imm/Tot Granulo (auto) 0.3 Sodium 129 L Potassium 3.3 L Chloride 103 Carbon Dioxide 18 L Anion Gap 8 BUN 6 L Creatinine 1.0 Estimated Creat Clear 34.90 Estimated GFR 57 Glucose 101 Calcium 7.3 L Iron 22 L TIBC 252 L % Saturation 9 L C-Reactive Protein 16.2 H Stool Occult Blood Negative Lab Acknowledgement Test Added
--- NOTE | 2023-04-20 17:55 | PC.NURSE ---
Patient A&O, VSS and afebrile today. BP returned to WNL back to patient's baseline. Lisinopril resuming tomorrow 04/21. TELE showed SR 60s-70s bpm and was discontinued per MD order. IVF discontinued d/t signs of fluid overload. Patient developed persistent dry cough with expiratory wheezes. Spironolactone given & 1x dose of IV lasix 20mg. Reported cough and wheezing are improving but not fully resolved. PRN lozenges given x2. UC resulted E. Coli so IV zosyn changed to IV rocephin. Pt was deemed independent in her room d/t stable gait & disconnected from lines. Guiaic test came back negative. K+ 3.3 today pt received x2 doses PO potassium bicarb. C/o LLE pain d/t pulling a muscle getting out of bed; ice pack applied and patient reported relief. Patient will be NPO @ 0000 for EGD tomorrow 04/21.
[2023-04-20] MEDS: ROPINIROLE HCL 1 MG TABLET 0.5 MG PO (20:50)
[2023-04-20] MEDS: SODIUM CHLORIDE 0.9 % (FLUSH) 10 ML SYRINGE 5 ML IVF (20:51)
[2023-04-20] MEDS: ATORVASTATIN 10 MG TABLET PO (20:51)
[2023-04-20] MEDS: LACTATED RINGERS 1000 ML 1,000 ML 75 ML IV (23:00)
[2023-04-21] VITALS (7 sets, daily range): BP systolic 140–163; BP diastolic 79–93; PULSE 68–100; RESP 16–20; TEMP 36.1–37.4; O2SAT 94–98
--- NOTE | 2023-04-21 05:01 | PC.NURSE ---
End of Shift: pt has been very pleasant. Pt Alert and orientated x4, no pain. she is drinking and voiding. IV fluids are patent, she is up ab alma. she sometimes will call to help with IV pole when getting up. . no BM this shift, continent, bladder.
[2023-04-21 06:13] LABS: Basophils Absolute Auto 0.03 K/uL (0.00-0.30); Basophils Percent Auto 0.4 % (0.0-3.0); Eosinophils Absolute Auto 0.07 K/uL (0.00-0.50); Eosinophils Percent Auto 0.9 % (0.0-7.0); Hemoglobin* 8.7 gm/dL (12.0-16.0); Immature Granulocytes Pct Auto 1.2 %; Lymphocytes Percent Auto 19.6 % (20-44); Mean Corpuscular HGB Conc 36 gm/dL (32-36); Mean Corpuscular Hemoglobin 30 pg (26-34); Mean Corpuscular Volume 82 fL (80-100); Neutrophils Absolute Auto 5.39 K/uL (1.7-7.0); Neutrophils Percent Auto 65.9 % (42.0-72.0); Platelet Count* 173 K/uL (140-440); RDW Coefficient of Variation % 13.4 % (11.5-15.5); Red Blood Count 2.94 m/uL (4.00-5.20); White Blood Count* 8.17 K/uL (4.50-11.00)
[2023-04-21 06:18] LABS: Slide Review Reflex No
[2023-04-21 06:23] LABS: Immature Reticulocyte Fraction 14.6 % (3.0-15.9); Reticulocyte Hemoglobin Equivi 19.1 pg (29.0-35.0); Reticulocyte Percent 0.9 % (0.5-2.0); Reticulocytes Absolute 0.03 # (0.03-0.08)
[2023-04-21 06:29] LABS: Chloride* 98 mmol/L (96-114); Potassium* 3.5 mmol/L (3.6-5.1); Sodium* 130 mmol/L (135-149)
[2023-04-21 06:32] LABS: Anion Gap 12 mEq/L (7-15); Blood Urea Nitrogen* 4 mg/dL (7-30); Carbon Dioxide* 20 mmol/L (20-32); Creatinine* 0.8 mg/dL (0.5-1.5); Estimated Glomerular Filt Rate 74 ml/min; Glucose* 100 mg/dL (60-115)
[2023-04-21] MEDS: timoloL maleate 0.5 % 1 DROP EYE-BOTH ×2 (08:39→21:11)
[2023-04-21] MEDS: DORZOLAMIDE HCL 2 % OPHTH DROP 1 DROP EYE-BOTH ×2 (08:39→21:11)
[2023-04-21] MEDS: cefTRIAXone 1 GM in 0.9 % SODIUM CHLORIDE Mini-bag 100 ML IVPB (08:39)
[2023-04-21] MEDS: lisinopriL 10 MG TABLET PO (08:39)
[2023-04-21] MEDS: OMEPRAZOLE 20 MG CAPSULE DR PO ×2 (08:40→21:11)
--- NOTE | 2023-04-21 09:14 | W.ANESCHARGE ---
Anesthesia Charges Start Date/Time Anesthesia Start Date: 04/21/23 Anesthesia Start Time: 09:35 Stop Date/Time Anesthesia Stop Date: 04/21/23 Anesthesia Stop Time: 09:52 Summary Extremes of Age - Over 70 or under 1: MDA
--- NOTE | 2023-04-21 09:56 | W.ANESCHARGE ---
Anesthesia Charges Start Date/Time Anesthesia Start Date: 04/21/23 Anesthesia Start Time: 09:35 Stop Date/Time Anesthesia Stop Date: 04/21/23 Anesthesia Stop Time: 09:52
[2023-04-21] MEDS: ACETAMINOPHEN 325 MG TABLET PO ×2 (11:54→23:38)
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
[2023-04-21] MEDS: ATORVASTATIN 10 MG TABLET PO (21:11)
[2023-04-21] MEDS: ROPINIROLE HCL 1 MG TABLET 0.5 MG PO (21:11)
[2023-04-21] MEDS: SODIUM CHLORIDE 0.9 % (FLUSH) 10 ML SYRINGE 5 ML IVF (21:12)
--- NOTE | 2023-04-21 22:04 | PC.NURSE ---
End of Shift: Patient pleasant and cooperative. Patient vitally stable, lungs clear, BS WNL, IV SL and intact. Patient independent in room and denies pain. Patient ate a yogurt, half of tea, and omar crackers with this medical technical writer. Patient did not order tray. Patient tolerating diet, drinking fluids and urinating.
[2023-04-22 03:00] VITALS: BP 133/81; PULSE 73; RESP 16; TEMP 36.6; O2SAT 94
--- NOTE | 2023-04-22 04:45 | PC.NURSE ---
Shift note: Pt has been in bed throughout the night. Alert and oriented. Denied dysuria but complained of headache at 0000 and Tylenol was given. No fever recorded. Pt had adequate sleep.
[2023-04-22] MEDS: LEVOTHYROXINE 25 MCG TABLET PO (06:02)
[2023-04-22 06:44] LABS: Basophils Absolute Auto 0.05 K/uL (0.00-0.30); Basophils Percent Auto 0.7 % (0.0-3.0); Eosinophils Absolute Auto 0.15 K/uL (0.00-0.50); Eosinophils Percent Auto 2.1 % (0.0-7.0); Hematocrit 25.4 % (33.0-51.0); Hemoglobin* 9.1 gm/dL (12.0-16.0); Immature Granulocytes Abs Auto 0.14 K/uL (0.00-0.30); Lymphocytes Absolute Auto 1.66 K/uL (0.90-2.90); Lymphocytes Percent Auto 23.2 % (20-44); Mean Corpuscular HGB Conc 36 gm/dL (32-36); Mean Corpuscular Hemoglobin 29 pg (26-34); Mean Corpuscular Volume 82 fL (80-100); Monocytes Percent Auto 10.2 % (0.0-11.0); Neutrophils Absolute Auto 4.41 K/uL (1.7-7.0); Neutrophils Percent Auto 61.8 % (42.0-72.0); Platelet Count* 199 K/uL (140-440); RDW Coefficient of Variation % 13.7 % (11.5-15.5); Red Blood Count 3.11 m/uL (4.00-5.20); White Blood Count* 7.14 K/uL (4.50-11.00)
[2023-04-22 06:57] LABS: Chloride* 100 mmol/L (96-114); Potassium* 3.3 mmol/L (3.6-5.1); Sodium* 133 mmol/L (135-149)
[2023-04-22 06:59] LABS: Slide Review Reflex No
[2023-04-22 07:00] LABS: Anion Gap 11 mEq/L (7-15); Blood Urea Nitrogen* 3 mg/dL (7-30); Carbon Dioxide* 22 mmol/L (20-32); Creatinine* 0.7 mg/dL (0.5-1.5); Estimated Glomerular Filt Rate 87 ml/min; Glucose* 109 mg/dL (60-115)
[2023-04-22 07:01] LABS: Calcium* 8.2 mg/dL (8.4-10.6)
[2023-04-22 07:25] VITALS: BP 183/89; PULSE 66; RESP 16; TEMP 36.6; O2SAT 100
[2023-04-22] MEDS: timoloL maleate 0.5 % 1 DROP EYE-BOTH (08:25)
[2023-04-22] MEDS: cefTRIAXone 1 GM in 0.9 % SODIUM CHLORIDE Mini-bag 100 ML IVPB (08:25)
[2023-04-22] MEDS: DORZOLAMIDE HCL 2 % OPHTH DROP 1 DROP EYE-BOTH (08:26)
[2023-04-22] MEDS: OMEPRAZOLE 20 MG CAPSULE DR PO (08:26)
[2023-04-22] MEDS: lisinopriL 10 MG TABLET PO (08:26)
[2023-04-22] MEDS: SODIUM CHLORIDE 0.9 % (FLUSH) 10 ML SYRINGE 5 ML IVF (08:27)
[2023-04-22 11:00] VITALS: BP 177/92; PULSE 73; RESP 18; TEMP 36.9; O2SAT 97
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
--- NOTE | 2023-04-22 14:05 | PC.NURSE ---
discharge. pt has been very pleasant. Pt Alert and orientated x4, no pain. she is drinking, eating and voiding. SL was d/c intact. she is up ab alma. no BM this shift, continent, bladder. went over discharge packet with pt/ went over medications, appointments, instructions. and educations. she went over personal belonging list and signed. all belongings and paperwork sent with pt. pt left with grand son.
== END 2023-04-22 14:00 | disposition home or self-care (01) | DRG 689 ==
LOC: ED 13:12 → MEDSURG 13:48
PROVIDERS: Physician Assistant; Admitting Provider Family Medicine; Emergency Provider Student in an Organized Health Care Education/Training Program; PCP Family Medicine; Visit Provider Family Medicine
DX: N39.0 Urinary tract infection, site not specified (principal); A41.89 Other specified sepsis; Z16.11 Resistance to penicillins; N17.8 Other acute kidney failure; E87.21 Acute metabolic acidosis; E87.1 Hypo-osmolality and hyponatremia; B96.20 Unspecified Escherichia coli [E. coli] as the cause of diseases classified elsewhere; F50.89 Other specified eating disorder; T76.A1XA Adult financial abuse, suspected, initial encounter; T76.31XA Adult psychological abuse, suspected, initial encounter; I10 Essential (primary) hypertension; E78.5 Hyperlipidemia, unspecified; E03.9 Hypothyroidism, unspecified; R50.9 Fever, unspecified; K73.9 Chronic hepatitis, unspecified; D50.8 Other iron deficiency anemias; I95.9 Hypotension, unspecified; R00.0 Tachycardia, unspecified; G25.81 Restless legs syndrome
CPT/HCPCS: 00731; 36415; 43239; 51798; 80048; 80076; 81001; 82270; 83540; 83550; 83605; 84443; 85025; 85045; 86140; 87040; 87086; 87186; 88305; 97110; 97116; 97161; 99100; 99283; 99284; G0378; A9270; J0696; J1650; J1940; J2543; J2704; J7030; J7120

== ENCOUNTER 2023-04-29 08:33 | Outpatient (CLI) | payer MEDICARE, OTHER, SELFPAY | END 2023-04-29 08:34 | disposition home or self-care (01) | LOC: NFLDREF 05-01 06:32 | PROVIDERS: PCP Family Medicine; Referring Provider Family Medicine; Visit Provider Family Medicine | DX: N39.0 Urinary tract infection, site not specified (principal); D64.9 Anemia, unspecified; I10 Essential (primary) hypertension; Z13.89 Encounter for screening for other disorder | CPT/HCPCS: 87086 ==